=== PATIENT | female | born 1950 | race Two or more races ===

== ENCOUNTER 2016-07-07 22:34 | Emergency (ER) | payer MEDICARE ==
[~2016-07-07] VITALS: Ht 152.4 cm; Wt 56.5 kg
[2016-07-07] MEDS ORDERED: FENO67CA PO (23:05)
[2016-07-07] MEDS ORDERED: CIPROFLOXACIN 500 MG TABLET ONE (23:56)
[2016-07-07 23:58] VITALS: BP 135/55
[2016-07-08] MEDS ORDERED: CIPROFLOXACIN 500 MG TABLET PO ONE
== END 2016-07-08 00:16 | disposition home or self-care (01) ==
LOC: ED 23:57
DX: N30.01 Acute cystitis with hematuria (principal)
CPT/HCPCS: 81001; 87077; 87086; 99284

== ENCOUNTER → 2020-08-12 | Outpatient (CLI) | payer MEDICARE ==
[~2020-08-12] MED LIST: FENO67CA PO
== END | disposition home or self-care (01) ==
LOC: CFH 08:51
PROVIDERS: ATTEND Family Medicine
DX: N64.4 Mastodynia (principal)
CPT/HCPCS: 76642; 77062; 77066; G0279